=== PATIENT | female | born 1990 | race Caucasian/White ===

== ENCOUNTER 2016-09-28 21:58 | Emergency (ER) | payer SELFPAY ==
[~2016-09-28] VITALS: Ht 170.2 cm; Wt 65.0 kg
[~2016-09-28 21:58] MED LIST: BENZ100 PO; DICY1TAB26 PO
[2016-09-28 22:01] VITALS: BP 130/66; PULSE 79; RESP 16; TEMP 97.6; O2SAT 100
[2016-09-28] MEDS ORDERED: IBUPROFEN 600 MG TAB PO ONE (23:00)
--- NOTE | 2016-09-28 23:51 | PD ---
HPI Chief Complaint: ENT Complaint Time Seen by Provider: 23:48 Travel History International Travel<30 days: No Contact w/Intl Traveler<30days: No Traveled to known affect area: No History of Present Illness HPI 26 year-old female presents to emergency department for evaluation of sore throat worsening over the last 4 days. Patient states she believes she may have strep throat. She has seen some white spots on her tongue. Subjective chills without fever. No nausea or vomiting. No cough or chest congestion. No other symptoms to report. PFSH Past Medical History ADHD: Yes Arthritis: No Asthma: No Autoimmune Disease: No Bipolar Disorder: Yes Anxiety: Yes Depression: Yes Heart Rhythm Problems: No Cancer: No Cardiovascular Problems: No High Cholesterol: No Chemotherapy: No Chest Pain: No Congestive Heart Failure: No COPD: No Cerebrovascular Accident: No Diabetes: No Diminished Hearing: No Endocrine: No GERD: No Genitourinary: Yes (HISTORY KIDNEY INFECTION) Hiatal Hernia: No Immune Disorder: No Kidney Stones: No Musculoskeletal: No Neurologic: No Psychiatric: Yes Reproductive: Yes Respiratory: No Immunizations Current: Yes Migraines: No Radiation Therapy: No Renal Failure: No Seizures: No Sickle Cell Disease: No Sleep Apnea: No Thyroid Disease: No Ulcer: No PNEUMOCCOCAL Vaccine (Year): 2 ?: Not Menopausal: No : 1 Para: 1 Past Surgical History Abdominal Surgery: No AICD: No Appendectomy: No Arteriovenous Shunt: No Cardiac Surgery: No Cholecystectomy: No Ear Surgery: No Endocrine Surgery: No Eye Surgery: No Genitourinary Surgery: No Gynecologic Surgery: Yes (VAGINAL DELIVERY 3 YEARS AGO) Insulin Pump: No Joint Replacement: No Oral Surgery: No Pacemaker: No Thoracic Surgery: No Other Surgery: Yes (BILATERAL FALLOPIAN TUBES REMOVED) Social History Alcohol Use: No Tobacco Use: Yes (1 PPD) Substance Use: No (DENIES ) Allergies-Medications (Allergen,Severity, Reaction): Coded Allergies: No Known Allergies (Verified , 09/28/16) Reported Meds & Prescriptions Reported Meds & Active Scripts Active Tessalon Perles (Benzonatate) 100 Mg Cap 100 Mg PO TID PRN Bentyl (Dicyclomine HCl) 20 Mg Tab 20 Mg PO Q6H PRN FOR CRAMPS Review of Systems Except as stated in HPI: all other systems reviewed are Neg Physical Exam Narrative GENERAL: Well-nourished, well-developed female patient in no acute distress SKIN: Focused skin assessment warm/dry. HEAD: Normocephalic. EYES: No scleral icterus. No injection or drainage. ENT: Mucosa pink and moist. Her exit erythema without exudates.. No uvular edema. No uvular, palatal, or tonsillar deviation. Airway patent. Nasal turbinates appear normal without nasal blood, purulent drainage or septal hematoma. NECK: Supple, trachea midline. No JVD or lymphadenopathy. CARDIOVASCULAR: Regular rate and rhythm without murmurs, gallops, or rubs. RESPIRATORY: Breath sounds equal bilaterally. No accessory muscle use. GASTROINTESTINAL: Abdomen soft, non-tender, nondistended. MUSCULOSKELETAL: No cyanosis, or edema. BACK: Nontender without obvious deformity. No CVA tenderness. Data Data Last Documented VS Vital Signs Date Time Temp Pulse Resp B/P Pulse Ox O2 Delivery O2 Flow Rate FiO2 09/28/16 22:01 97.6 79 16 130/66 100 Room Air Orders Group A Rapid Strep Screen (09/28/16 22:54) Ibuprofen (Motrin) (09/28/16 23:00) Strep Culture (Group A) (09/28/16 23:08) MDM Medical Decision Making Medical Screen Exam Complete: Yes Emergency Medical Condition: Yes Medical Record Reviewed: Yes Differential Diagnosis Viral pharyngitis versus strep pharyngitis versus allergies versus postnasal drip versus tonsillitis Narrative Course 26 year-old female presents to the emergency department for evaluation of sore throat. Rapid strep screen is negative. Vital signs are stable. She is counseled on care and encouraged to follow-up with primary care provider. She agrees to return immediately with any acute worsening of symptoms. Diagnosis Primary Impression: Pharyngitis Qualified Code: J02.9 - Pharyngitis, unspecified etiology Referrals: Primary Care Physician Patient Instructions: General Instructions, Pharyngitis (ED) Additional Instructions: Warm salt water gargles may help to alleviate symptoms Tylenol and/or ibuprofen as directed on the package as needed for fever and/or pain Avoid acidic and abrasive food Initial strep screen is negative; if the culture grows positive, you will receive a phone call in 2-3 days Return immediately with any acute worsening of symptoms Med/Other Pt SpecificInfo: No Change to Meds Disposition: 01 DISCHARGE HOME Condition: Stable Olga Broderick September 28, 2016 23:51
== END 2016-09-29 00:09 | disposition home or self-care (01) ==
LOC: NEPK 21:58
DX: J02.9 Acute pharyngitis, unspecified (principal)
CPT/HCPCS: 87081; 87880; 99283